=== PATIENT | female | born 1990 | race African-American/Black ===

== ENCOUNTER 2018-03-09 22:18 | Emergency (ER) | payer OTHER ==
[2018-03-09 23:12] LABS: Absolute Lymphocytes (CBC) 5.8 K/uL (0.7-4.9); Absolute Monocytes 1.1 K/uL (0.1-1.3); Absolute Neutrophil 6.5 K/uL (1.8-8.0); Basophils % 0.4 % (0-1.3); Eosinophils % 0.9 % (0-4.4); Lymphocytes % 42.9 % (15.3-44.8); MCH 29.3 pg (27.0-35.0); MCV 90.1 fL (80-100); Monocytes % 8.1 % (3.3-12.3); RBC Red Blood Cell Count 4.55 M/uL (3.86-4.86)
[2018-03-09 23:24] LABS: Glucose Level 115 mg/dL (65-120)
[2018-03-09 23:30] LABS: ALT/SGPT 22 IU/L (10-60); AST/SGOT 25 IU/L (10-42); Alkaline Phosphatase 105 IU/L (42-121); BUN Blood Urea Nitrogen 11 mg/dL (6-20); Bicarbonate 25 mEq/L (21-31); Bilirubin Direct 0.1 mg/dL (0-0.2); Bilirubin Total 0.7 mg/dL (0.3-1.2); Potassium 3.4 mEq/L (3.6-5.0); Protein, Total 7.5 g/dL (6.0-8.3); Sodium Level 142 mEq/L (135-145)
[2018-03-09 23:31] LABS: Alcohol Serum/Plasma 319 mg/dl
[2018-03-09] MEDS ORDERED: ONDANSETRON 4 MG/2 ML VIAL ONE (23:35)
[2018-03-10 03:23] LABS: Barbiturates NEGATIVE; Benzodiazepines NEGATIVE; Cocaine NEGATIVE; Opiates NEGATIVE; Phencyclidine NEGATIVE; THC Cannibis POSITIVE
[2018-03-10 03:24] LABS: METHAMPHETAM POSITIVE (NEGATIVE)
[2018-03-10 03:26] LABS: Urine Blood NEGATIVE (NEG); Urine Glucose NEGATIVE (NEG); Urine Protein TRACE (NEG)
[2018-03-10] MEDS ORDERED: CEFTRIAXONE/SWI 1gm 1 GM/10 ML SYR ONE (04:07)
--- NOTE | 2018-03-10 06:41 | EDPHYS ---
Physician Documentation [facility] Name: Linda Gil Age: 27 yrs Sex: Female : 1990 Arrival Date: 03/09/2018 Time: 22:23 Bed 19 Private MD: ED Physician Milind Del Valle HPI: 03/09 22:55 This 27 yrs old Black Female presents to ER via EMS with complaints of Altered Mental wa Status. 22:55 The patient presents with decreased mental status, decreased responsiveness, found down wa by EMS. pt possible ETOH. cannot give a history. nods and moans to questions. EMS denies obvious trauma at scene. Onset: The symptoms/episode began/occurred today. Possible causes: alcohol, has had a recent alcohol binge. Associated signs and symptoms: Pertinent positives: unknown. Current symptoms: In the emergency department the patient's symptoms are unchanged from the initial presentation. Patient's baseline: unknown. It is unknown whether or not the patient has had similar symptoms in the past. It is unknown whether or not the patient has recently seen a physician. 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 - Social history:: Smoking status: unknown Patient uses alcohol, street drugs. - Ebola Screening: : No symptoms or risks identified at this time. - Family history:: not pertinent. - Hospitalizations: : unknown. ROS: 22:59 Unable to obtain ROS due to altered mental status. wa Exam: 23:00 Cardiovascular: Regular rate and rhythm with a normal S1 and S2. No gallops, murmurs, wa or rubs. Normal PMI, no JVD. No pulse deficits. Respiratory: Lungs have equal breath sounds bilaterally, clear to auscultation and percussion. No rales, rhonchi or wheezes noted. No increased work of breathing, no retractions or nasal flaring. Abdomen/GI: Soft, non-tender, with normal bowel sounds. No distension or tympany. No guarding or rebound. No evidence of tenderness throughout. Back: No spinal tenderness. No costovertebral tenderness. Full range of motion. 23:00 Constitutional: The patient appears decreased response. does follow some simple commands 23:00 Head/face: Exam is negative for obvious evidence of injury or deformity, contusion, deformity, ecchymosis, erythema, hematoma, laceration(s), swelling. 23:00 Eyes: Pupils: equal, round, and reactive to light and accomodation, Conjunctiva: normal. 23:00 ENT: Nose: is normal. 23:00 Neck: External neck: is normal. 23:00 Chest/axilla: Inspection: normal, Palpation: is normal. 23:00 Cardiovascular: Rate: tachycardic, Rhythm: regular, Pulses: no pulse deficits are appreciated, Heart sounds: normal, Edema: is not appreciated, JVD: is not appreciated. 23:00 Respiratory: the patient does not display signs of respiratory distress, Respirations: normal, Breath sounds: are clear throughout, Respiratory rate: nml 23:00 Musculoskeletal/extremity: Extremities: all appear grossly normal, with no appreciated pain with palpation. 23:00 Skin: Appearance: Color: normal in color, Temperature: normal temperature, Moisture: normal moisture. 23:00 Neuro: Orientation: knows name. Vital Signs: 22:27 BP 103 / 65; Pulse 69; Resp 16 S; Pulse Ox 93% on R/A; Weight 83.91 kg (R); Height 5 bb ft. 6 in. (167.64 cm) (R); 22:45 Temp 97.4(TE); ak1 03/10 00:17 BP 97 / 62; Pulse 76; Resp 14; Temp 97.4(TE); Pulse Ox 100% on R/A; Pain 0/10; ak1 01:48 BP 101 / 70; Pulse 79; Resp 14; Temp 97.3; Pulse Ox 100% on R/A; Pain 0/10; ak1 02:30 BP 94 / 58; Pulse 67; Resp 16; Pulse Ox 96% ; Pain 0/10; ao 03:30 BP 101 / 64; Pulse 68; Resp 16; Pulse Ox 99% on R/A; ao 04:29 BP 95 / 65; Pulse 65; Resp 16; Pulse Ox 100% ; Pain 0/10; ao 05:39 BP 99 / 67; Pulse 85; Resp 18; Pulse Ox 100% on R/A; Pain 0/10; ao 03/09 22:27 Body Mass Index 29.86 (83.91 kg, 167.64 cm) bb MDM: 03/09 22:40 Patient medically screened. wi 23:03 Differential Diagnosis: CVA, electrolyte abnormality, alcohol intoxication, wi hypoglycemia, intracranial bleed, overdose, seizure, TIA, UTI, volume depletion. 03/10 01:55 Data reviewed: vital signs, nurses notes. Test interpretation: by ED physician or wi midlevel provider: head and c-spine CT: no acute process. labs noted for ETOH serum level of 319. . 05:54 Test interpretation: by ED physician or midlevel provider: UA noted nitrite positive. wi cbc noted for leukocytosis. UDS noted for amphetamines and THC. . ED course: will await sobriety. 06:38 Response to treatment: the patient's symptoms have markedly improved after treatment. wi ED course: 0630 hrs: pt awake and alert. desires to go home. ambulated without deficit. will release to family. 03/09 22:40 Order name: Acetaminophen; Complete Time: 01:54 wi 03/09 22:40 Order name: Basic Metabolic Panel; Complete Time: :54 wi 03/09 22:40 Order name: CBC with Diff; Complete Time: :54 wi 03/09 22:40 Order name: ETOH Level; Complete Time: :54 wi 03/09 22:40 Order name: Hepatic Function; Complete Time: : wi 03/09 22:40 Order name: Salicylate; Complete Time: :55 wi 03/09 22:40 Order name: Urine Test (obtain specimen); Complete Time: 04:53 wi 03/09 22:40 Order name: Urine Drug Screen; Complete Time: 04:02 wi 03/09 22:40 Order name: EKG; Complete Time: 22:41 wi 03/09 22:40 Order name: CT Head C Spine wi 03/10 03:14 Order name: Urine Dipstick--Ancillary (enter results); Complete Time: 04:03 [facility] 03/10 03:14 Order name: Urine --Ancillary (enter results); Complete Time: 04:02 [facility] 03/09 22:40 Order name: EKG - Nurse/Tech; Complete Time: 23:01 wi 03/09 22:40 Order name: IV Saline Lock; Complete Time: 23: wi 03/09 22:40 Order name: Labs collected and sent; Complete Time: : wi 03/09 22:40 Order name: Urine Dipstick-Ancillary (obtain specimen); Complete Time: : wi Administered Medications: 03/09 23:40 Drug: Zofran 4 mg Route: IVP; Site: left hand; ak1 03/10 04:27 Follow up: Response: No adverse reaction ao 04:26 Drug: Rocephin - (cefTRIAXone) 1 grams Route: IVPB; Infused Over: 30 mins; Site: left ao antecubital; 07:02 Follow up: IV Status: Completed infusion; IV Intake: 10ml ao Disposition: 03/10/18 06:40 Discharged to Home. Impression: acute altered mental status, acute alcohol intoxication, recreational drug abuse. - Condition is Stable. - Medication Reconciliation Form, Thank You Letter, Antibiotic Education, Prescription Opioid Use form. - Follow up: Private Physician; When: As needed; Reason: Recheck today's complaints. - Problem is new. - Symptoms have improved. - Notes: do not binge dring and use recreational drugs. they are harmful to your health and case you significant disability. Maylead to Signatures: Dispatcher [employer] EDMS Ayaka Whitaker RN RN Amee Mcdermott RN RN [facility] Mian Gan RN RN ao Callie Rene RN RN Milind Del Valle MD MD wi Corrections: (The following items were deleted from the chart) 07:21 06:40 03/10/2018 06:40 Discharged to Home. Impression: acute altered mental status; hb acute alcohol intoxication; recreational drug abuse. Condition is Stable. Forms are Medication Reconciliation Form, Thank You Letter, Antibiotic Education, Prescription Opioid Use. Follow up: Private Physician; When: As needed; Reason: Recheck today's complaints. Problem is new. Symptoms have improved. wi
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
--- NOTE | 2018-03-10 08:53 | RAD REPORT ---
EXAM DESCRIPTION: CT - CTHCSPWOC - 03/10/2018 3:14 am CLINICAL HISTORY: Transient alteration of awareness, found unresponsive, unknown injury or precipita ting event A preliminary written report was provided at the time of the study, and the report was reviewed prio r to final dictation. COMPARISON: None. TECHNIQUE: Axial 5 mm thick images of the head were obtained. Axial 2 mm thick images of the cervic al spine were obtained with sagittal and coronal reconstruction images generated and reviewed. All CT scans are performed using dose optimization technique as appropriate and may include automated exposure control or mA/KV adjustment according to patient size. FINDINGS: No intracranial hemorrhage, mass, edema or acute intracranial finding. No suspicion for ac rosy infarction. No extra-axial fluid collections. Mastoid air cells and paranasal sinuses are clear. No globe or orbit abnormality seen. Motion degradation creates multiple artifacts along the inner tab le. Cervical body height and alignment are normal. No disk space narrowing. No fracture or acute bony abn ormality. Reversal of the usual cervical lordosis is believed to be a positioning artifact. Central c anal detail is inherently limited. No paraspinal mass or hematoma. IMPRESSION: Negative CT head examination for acute or significant finding. Negative CT cervical spine examination for acute or significant finding.
--- NOTE | 2018-03-10 12:45 | EKG ---
Test Date: 2018-03-09 Test Time: 22:56:52 Social Services Specialist: SID MEASUREMENT RESULTS: Intervals: Rate: 62 GA: 150 QRSD: 92 QT: 404 QTc: 410 [place]: P: -16 GA: 150 QRS: 66 T: 31 INTERPRETIVE STATEMENTS: Normal sinus rhythm Normal ECG Electronically Signed On 03-10-18 12:43:34 CDT by Dallin Turcios
== END 2018-03-10 07:21 | disposition home or self-care (01) ==
LOC: ER 22:18
DX: F10.129 Alcohol abuse with intoxication, unspecified (principal); F19.10 Other psychoactive substance abuse, uncomplicated
CPT/HCPCS: 36415; 70450; 72125; 80048; 80076; 80307; 80320; 80329; 81003; 81025; 85025; 93005; 96365; 96366; 96375; 99284; J0696; J2405

== ENCOUNTER 2021-04-10 12:48 | Emergency (ER) | payer OTHER, SELFPAY ==
--- NOTE | 2021-04-10 14:01 | RAD REPORT ---
EXAM DESCRIPTION: CT - Head Brain Wo Cont - 04/10/2021 1:49 pm CLINICAL HISTORY: DIZZINESS COMPARISON: HEAD BRAIN W O CONTRAST dated 09/06/2007 TECHNIQUE: Axial 5 mm thick images of the head were obtained without IV contrast. All CT scans are performed using dose optimization technique as appropriate and may include automated exposure control or mA/KV adjustment according to patient size. FINDINGS: No intracranial hemorrhage, mass, edema or shift of mid-line structures. No acute infarcti on changes seen. No abnormal extra-axial fluid collections. Ventricles are normal. Mastoid air cells, middle ears and visualized portions of the paranasal sinuses are clear. No globe or orbital content abnormality identified. No acute bony findings. IMPRESSION: Negative non-contrast CT head examination. No significant change from the 2007 study.
[2021-04-10] MEDS ORDERED: MECLIZINE HCL 12.5 MG TAB ONE (14:23)
[2021-04-10] MEDS ORDERED: NA CHLORIDE 0.9% 1,000 ML ONE (14:24)
[2021-04-10 14:28] LABS: Absolute Lymphocytes (CBC) 2.3 K/uL (0.7-4.9); Basophils % 0.7 % (0-1.3); Hematocrit 41.6 % (36.0-45.0); Lymphocytes % 24.2 % (15.3-44.8); MPV 10.2 fL (7.6-11.3); RBC Red Blood Cell Count 4.54 M/uL (3.86-4.86)
[2021-04-10 14:29] LABS: Protime INR 1.01
[2021-04-10 14:53] LABS: Urine Blood Negative (Negative); Urine Glucose Negative (Negative); Urine Protein Negative (Negative); Urine Specific Gravity 1.025 (1.005-1.030); Urine pH 8.5 (5.0-7.0)
--- NOTE | 2021-04-10 14:54 | RAD REPORT ---
EXAM DESCRIPTION: RAD - Chest Single View - 04/10/2021 1:58 pm CLINICAL HISTORY: Dizziness, shortness of breath COMPARISON: None TECHNIQUE: AP portable chest image was obtained 04/10/2021 1:58 pm . FINDINGS: Lungs are clear. Heart and vasculature are normal. No measurable pleural effusion and no p neumothorax. No acute bony abnormality seen. No acute aortic findings suspected. IMPRESSION: No acute cardiopulmonary process.
[2021-04-10 14:58] LABS: Urine Specific Gravity/Preg 1.025 (1.005-1.030)
[2021-04-10 14:59] LABS: ALT/SGPT 73 U/L (12-78); AST/SGOT 54 U/L (15-37); Albumin 3.8 g/dL (3.4-5.0); Alkaline Phosphatase 166 U/L (45-117); BUN Blood Urea Nitrogen 7 mg/dL (7-18); Bicarbonate 24 mmol/L (21-32); Bilirubin Direct < 0.1 mg/dL (0-0.2); Bilirubin Total 0.3 mg/dL (0.2-1.0); Glucose Level 93 mg/dL (74-106); Magnesium 2.2 mg/dL (1.8-2.4); Potassium 3.8 mmol/L (3.5-5.1); Protein, Total 7.7 g/dL (6.4-8.2); Sodium Level 139 mmol/L (136-145); Troponin (Emerg Dept Use Only) < 0.02 ng/mL (0.0-0.045)
[2021-04-10] MEDS ORDERED: DIAZEPAM 10 MG/2 ML INJ SYRINGE ONE (15:42)
[2021-04-10] MEDS ORDERED: CEFTRIAXONE/SWI 1gm 1 GM/10 ML SYR ONE (15:43)
--- NOTE | 2021-04-10 15:54 | ER ---
Nurse's Notes [facility] Name: Linda Gil Age: 31 yrs Sex: Female : 1990 Arrival Date: 04/10/2021 Time: 12:51 Bed 26 Private MD: Diagnosis: UTI/ Urinary tract infection, site not specified; Benign paroxysmal vertigo Presentation: 04/10 13:12 Chief complaint: Patient states: "For the past couple of days I have been feeling jd3 dizzy. at first I just thought i just stood up to fast, but after day 2 and it didn't go away with medicine I had to come to get it checked out. there is something abnormal.". Coronavirus screen: At this time, the client does not indicate any symptoms associated with coronavirus-19. Ebola Screen: Patient negative for fever greater than or equal to 101.5 degrees Fahrenheit, and additional compatible Ebola Virus Disease symptoms. Initial Sepsis Screen: Does the patient meet any 2 criteria? No. Patient's initial sepsis screen is negative. Does the patient have a suspected source of infection? No. Patient's initial sepsis screen is negative. Risk Assessment: Do you want to hurt yourself or someone else? Patient reports no desire to harm self or others. Onset of symptoms was April 08, 2021. 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 - Social history:: Smoking status: Patient denies any tobacco usage or history of. Screenin:22 Abuse screen: Denies threats or abuse. Nutritional screening: No deficits noted. vg1 Tuberculosis screening: No symptoms or risk factors identified. Fall Risk No fall in past 12 months (0 pts). No secondary diagnosis (0 pts). IV access (20 points). Ambulatory Aid- None/Bed Rest/Nurse Assist (0 pts). Gait- Normal/Bed Rest/Wheelchair (0 pts) Mental Status- Oriented to own ability (0 pts). Total [place] Fall Scale indicates No Risk (0-24 pts). Assessment: 13:30 General: Appears in no apparent distress. comfortable, Behavior is calm, cooperative. vg1 Pain: Denies pain. Neuro: Level of Consciousness is awake, alert, obeys commands, Oriented to person, place, time, situation, Reports blurred vision photophobia. Cardiovascular: Patient's skin is warm and dry. Respiratory: Airway is patent Respiratory effort is even, unlabored. GI: No signs and/or symptoms were reported involving the gastrointestinal system. : No signs and/or symptoms were reported regarding the genitourinary system. EENT: Denies pain. Derm: Skin is intact, is healthy with good turgor. Musculoskeletal: Circulation, motion, and sensation intact. 15:29 Reassessment: Patient appears in no apparent distress at this time. No changes from vg1 previously documented assessment. Patient and/or family updated on plan of care and expected duration. Pain level reassessed. Patient is alert, oriented x 3, equal unlabored respirations, skin warm/dry/pink. Vital Signs: 13:14 BP 131 / 90; Pulse 84; Resp 17 S; Temp 97.4(TE); Pulse Ox 100% on R/A; Weight 79.38 kg jd3 (R); Height 4 ft. 10 in. (147.32 cm) (R); Pain 0/10; 13:32 BP 121 / 74; Pulse 70; Resp 16; Pulse Ox 98% on R/A; vg1 15:00 BP 113 / 80; Pulse 70; Resp 16; Pulse Ox 100% on R/A; vg1 16:28 BP 111 / 70; Pulse 62; Resp 16; Pulse Ox 100% ; vg1 13:14 Body Mass Index 36.58 (79.38 kg, 147.32 cm) jd3 ED Course: 12:51 Patient arrived in ED. ds1 13:14 Triage completed. jd3 13:15 Arm band placed on. jd3 13:22 Mikey Pulliam NP is PHCP. pm1 13:22 Mega Hernandez MD is Attending Physician. pm1 13:22 Keira Boogie, DEISY is Primary Nurse. vg1 13:49 CT Head Brain wo Cont In Process Unspecified. EDMS 13:58 XRAY Chest (1 view) In Process Unspecified. EDMS 14:21 Initial lab(s) drawn, by id, sent to lab. Inserted saline lock: 20 gauge in right vg1 wrist, using aseptic technique. Blood collected. 14:23 Patient has correct armband on for positive identification. Bed in low position. Call 1 light in reach. Side rails up X 1. 14:53 Urine Dipstick-Ancillary Sent. [facility] 14:53 Urine collected: clean catch specimen, cloudy. [facility] 14:54 Pulse ox on. NIBP on. [facility] 14:55 Troponin (emerg Dept Use Only) Sent. [facility] 14:55 Magnesium Sent. [facility] 14:55 LFT's Sent. [facility] 14:55 Basic Metabolic Panel Sent. [facility] 16:29 No provider procedures requiring assistance completed. IV discontinued, intact, vg1 bleeding controlled, No redness/swelling at site. Pressure dressing applied. Administered Medications: 14:09 Drug: Meclizine 50 mg Route: PO; vg1 15:16 Follow up: Response: No change in condition vg1 14:18 Drug: NS 0.9% 1000 ml Route: IV; Rate: 1000 ml; Site: right wrist; vg1 15:16 Follow up: IV Status: Completed infusion; IV Intake: 1000ml vg1 15:25 Drug: Rocephin (cefTRIAXone) 1 grams Route: IV; Rate: calculated rate; Site: right vg1 wrist; 16:30 Follow up: Response: No adverse reaction; IV Status: Completed infusion vg1 15:28 Drug: Valium (diazepam) 5 mg Route: IVP; Site: right wrist; vg1 16:30 Follow up: Response: Marked relief of symptoms vg1 Intake: 15:16 IV: 1000ml; Total: 1000ml. vg1 Outcome: 15:54 Discharge ordered by MD. pm1 16:29 Discharged to home ambulatory. vg1 16:29 Condition: stable 16:29 Discharge instructions given to patient, Instructed on discharge instructions, follow up and referral plans. medication usage, Demonstrated understanding of instructions, follow-up care, medications, Prescriptions given X 3. 16:30 Patient left the ED. vg1 Signatures: Dispatcher [employer] EDAK Diane Craig 1 Mikey Pulliam, BOOT AND SHOE REPAIRMAN BOOT AND SHOE REPAIRMAN pm1 Gina Greenberg 5 Alvino Amaya RN RN jd3 Keira Boogie RN RN vg1 Corrections: (The following items were deleted from the chart) 13:15 13:14 Pulse 84bpm; Resp 17bpm; Spontaneous; Pulse Ox 100% RA; Temp 97.4F Temporal; jd3 79.38 kg Reported; Height 4 ft. 10 in. Reported; BMI: 36.5; Pain 0/10; jd3
--- NOTE | 2021-04-10 15:54 | EDPHYS ---
Physician Documentation [facility] Name: Linda Gil Age: 31 yrs Sex: Female : 1990 Arrival Date: 04/10/2021 Time: 12:51 Bed 26 Private MD: ED Physician Mega Hernandez HPI: 04/10 13:36 This 31 yrs old Black Female presents to ER via Ambulatory with complaints of pm1 Dizziness, Weakness. 13:36 The patient presents with vertigo. Onset: The symptoms/episode began/occurred 3 day(s) pm1 ago. Context: just prior to the episode the patient experienced no apparent symptoms. Modifying factors: The symptoms are alleviated by holding head still, the symptoms are aggravated by movement of head, changing position. Associated signs and symptoms: Pertinent positives: generalized weakness, Pertinent negatives: abdominal pain, chest pain, focal weakness, headache, nausea, numbness, shortness of breath, tingling, vomiting. Severity of symptoms: in the emergency department the symptoms are worse. The patient has not experienced similar symptoms in the past. The patient has not recently seen a physician. Patient has been taking ibuprofen and Tylenol to help relieve her symptoms. 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 - Social history:: Smoking status: Patient denies any tobacco usage or history of. ROS: 13:36 Constitutional: Negative for fever, chills, and weight loss, Cardiovascular: Negative pm1 for chest pain, palpitations, and edema, Respiratory: Negative for shortness of breath, cough, wheezing, and pleuritic chest pain, Abdomen/GI: Negative for abdominal pain, nausea, vomiting, diarrhea, and constipation, MS/Extremity: Negative for injury and deformity, Skin: Negative for injury, rash, and discoloration. 13:36 Neuro: Positive for dizziness, weakness, Negative for headache, numbness, tingling. 13:36 All other systems are negative. Exam: 13:36 Constitutional: This is a well developed, well nourished patient who is awake, alert, pm1 and in no acute distress. Head/Face: Normocephalic, atraumatic. 13:36 Skin: Warm, dry with normal turgor. Normal color with no rashes, no lesions, and no pm1 evidence of cellulitis. MS/ Extremity: Pulses equal, no cyanosis. Neurovascular intact. Full, normal range of motion. 13:36 Eyes: Exam is negative for Extraocular movements: no acute changes, Conjunctiva: no acute changes, no injection, Nystagmus: horizontal nystagmus present. 13:36 ENT: Exam is negative for acute changes, Mouth: Lips: normal, Oral mucosa: normal, pink and intact, moist. 13:36 Cardiovascular: Exam negative for acute changes, Rate: normal, Rhythm: regular, Pulses: no pulse deficits are appreciated, Heart sounds: normal, normal S1and S2, Edema: is not appreciated. 13:36 Respiratory: Exam negative for acute changes, respiratory distress, shortness of breath, Breath sounds: are clear throughout. 13:36 Neuro: Exam negative for acute changes, Orientation: is normal, Motor: is normal, moves all fours. Vital Signs: 13:14 BP 131 / 90; Pulse 84; Resp 17 S; Temp 97.4(TE); Pulse Ox 100% on R/A; Weight 79.38 kg jd3 (R); Height 4 ft. 10 in. (147.32 cm) (R); Pain 0/10; 13:32 BP 121 / 74; Pulse 70; Resp 16; Pulse Ox 98% on R/A; vg1 15:00 BP 113 / 80; Pulse 70; Resp 16; Pulse Ox 100% on R/A; vg1 16:28 BP 111 / 70; Pulse 62; Resp 16; Pulse Ox 100% ; vg1 13:14 Body Mass Index 36.58 (79.38 kg, 147.32 cm) jd3 MDM: 13:34 Patient medically screened. pm1 15:19 Data reviewed: vital signs. Data interpreted: Pulse oximetry: on room air is 98 %. pm1 Interpretation: normal. 15:53 Counseling: I had a detailed discussion with the patient and/or guardian regarding: the pm1 historical points, exam findings, and any diagnostic results supporting the discharge/admit diagnosis, lab results, radiology results, the need for outpatient follow up, for definitive care, a neurologist, to return to the emergency department if symptoms worsen or persist or if there are any questions or concerns that arise at home. 16:15 ED course: PMPaware reviewed: no results found. pm04/10 13:34 Order name: Basic Metabolic Panel; Complete Time: 15:07 pm04/10 13:34 Order name: CBC with Diff; Complete Time: 14:38 pm04/10 13:34 Order name: LFT's; Complete Time: 15:07 pm04/10 13:34 Order name: Magnesium; Complete Time: 15:07 pm04/10 13:34 Order name: PT-INR; Complete Time: 14:38 pm04/10 13:35 Order name: Troponin (emerg Dept Use Only); Complete Time: 15:07 pm04/10 13:34 Order name: CT Head Brain wo Cont; Complete Time: 14:08 pm04/10 13:35 Order name: XRAY Chest (1 view); Complete Time: 14:55 pm04/10 14:53 Order name: Urine Dipstick-Ancillary; Complete Time: 14:55 EDMO 04/10 14:53 Order name: Urine --Ancillary (enter results) 04/10 14:54 Order name: Urine --Ancillary; Complete Time: 15:07 EDMO 04/10 14:55 Order name: Urine Microscopic Only [facility] 04/10 14:56 Order name: Urine Microscopic Only; Complete Time: 17:11 EDMO 04/10 16:15 Order name: Urine Culture [facility] 04/10 13:35 Order name: EKG; Complete Time: 13:35 pm04/10 13:35 Order name: Cardiac monitoring; Complete Time: 14:19 pm04/10 13:35 Order name: EKG - Nurse/Tech; Complete Time: 14:19 pm04/10 13:35 Order name: IV Saline Lock; Complete Time: 14:19 pm04/10 13:35 Order name: Labs collected and sent; Complete Time: 14:19 pm04/10 13:35 Order name: O2 Per Protocol; Complete Time: 14:19 pm04/10 13:35 Order name: O2 Sat Monitoring; Complete Time: 14:19 pm04/10 13:35 Order name: Urine Dipstick-Ancillary (obtain specimen); Complete Time: 14:53 pm1 04/10 13:35 Order name: Urine Test (obtain specimen); Complete Time: 14:53 pm1 Administered Medications: 14:09 Drug: Meclizine 50 mg Route: PO; vg1 15:16 Follow up: Response: No change in condition vg1 14:18 Drug: NS 0.9% 1000 ml Route: IV; Rate: 1000 ml; Site: right wrist; vg1 15:16 Follow up: IV Status: Completed infusion; IV Intake: 1000ml vg1 15:25 Drug: Rocephin (cefTRIAXone) 1 grams Route: IV; Rate: calculated rate; Site: right vg1 wrist; 16:30 Follow up: Response: No adverse reaction; IV Status: Completed infusion vg1 15:28 Drug: Valium (diazepam) 5 mg Route: IVP; Site: right wrist; vg1 16:30 Follow up: Response: Marked relief of symptoms vg1 Disposition: 17:26 Co-signature as Attending Physician, Mega Hernandez MD. rn Disposition: 04/10/21 15:54 Discharged to Home. Impression: Benign paroxysmal vertigo, UTI/ Urinary tract infection, site not specified. - Condition is Stable. - Discharge Instructions: Benign Positional Vertigo, Urinary Tract Infection, Adult. - Prescriptions for Meclizine 25 mg Oral Tablet - take 1 tablet by ORAL route every 8 hours As needed; 30 tablet. Bactrim DS 800- 160 mg Oral Tablet - take 1 tablet by ORAL route every 12 hours for 10 days; 20 tablet. Valium 2 mg Oral Tablet - take 1 tablet by ORAL route every 8 hours As needed; 12 tablet. - Medication Reconciliation Form, Thank You Letter, Antibiotic Education, Prescription Opioid Use form. - Follow up: Emergency Department; When: As needed; Reason: Worsening of condition. Follow up: Private Physician; When: 2 - 3 days; Reason: Recheck today's complaints, Continuance of care, Re-evaluation by your physician. - Problem is new. - Symptoms have improved. Signatures: Dispatcher [employer] EDMega Pace MD MD rn Marinas, Patrick, THERAPY COORDINATOR THERAPY COORDINATOR pm1 Alvino Amaya RN RN jd3 Garcia, Victoria RN RN vg1 Corrections: (The following items were deleted from the chart) 16:30 15:54 04/10/2021 15:54 Discharged to Home. Impression: Benign paroxysmal vertigoUrinary vg1 tract infection, site not specified. Condition is Stable. Forms are Medication Reconciliation Form, Thank You Letter, Antibiotic Education, Prescription Opioid Use. Follow up: Emergency Department; When: As needed; Reason: Worsening of condition. Follow up: Private Physician; When: 2 - 3 days; Reason: Recheck today's complaints, Continuance of care, Re-evaluation by your physician. Problem is new. Symptoms have improved. pm1
[2021-04-10 16:15] LABS: Urine Bacteria 20-50 /HPF (<20); Urine Mucus 1+ /HPF (NONE SEEN); Urine RBC <5 /HPF (NONE SEEN)
[2021-04-10 16:34] VITALS: TEMP 97.4
[2021-04-10 16:38] VITALS: O2SAT 100
[2021-04-10 16:39] VITALS: BP 111/70
--- NOTE | 2021-04-11 12:58 | EKG ---
Test Date: 2021-04-10 Test Time: 14:06:53 Sales And Service Consultant: NAOMI MEASUREMENT RESULTS: Intervals: Rate: 62 WA: 142 QRSD: 84 QT: 400 QTc: 406 [place]: P: 50 WA: 142 QRS: 77 T: 43 INTERPRETIVE STATEMENTS: Normal sinus rhythm Normal ECG Compared to ECG 03/09/2018 22:56:52 No significant changes Electronically Signed On 04-11-21 12:54:02 CDT by Dallin Turcios
== END 2021-04-10 16:30 | disposition home or self-care (01) ==
LOC: ER 12:48
DX: H81.10 Benign paroxysmal vertigo, unspecified ear (principal); N39.0 Urinary tract infection, site not specified
CPT/HCPCS: 36415; 70450; 71045; 80048; 80076; 81003; 81015; 81025; 83735; 84484; 85025; 85610; 87086; 87088; 93005; 96361; 96365; 96375; 99284; J0696; J3360; J7030